=== PATIENT | female | born 1975 | race Caucasian/White ===

== ENCOUNTER 2017-01-14 13:02 | Emergency (ER) | payer BC ==
[~2017-01-14] VITALS: Ht 154.9 cm; Wt 58.6 kg
[~2017-01-14 13:02] MED LIST: CITROMA PO; DOCU-144 PO; GLYC1SUP92 PR
[2017-01-14 13:04] VITALS: Ht 154.9 cm; Wt 58.6 kg
[2017-01-14 16:14] LABS: ADD SCAN DIFF NO
[2017-01-14 16:19] LABS: BASOPHILS % 0.5 % (0.0-2.0); EOSINOPHILS # 0.1 10^3/ul (0.0-0.5); EOSINOPHILS % 2.2 % (0.0-7.0); HEMATOCRIT 39.4 % (37.0-47.0); LYMPHOCYTES # 1.4 10^3/ul (0.8-2.9); LYMPHOCYTES % 22.7 % (15.0-51.0); MEAN CORPUSCULAR HEMOGLOBIN 30.7 pg (29.0-33.0); MEAN CORPUSCULAR VOLUME 92.9 fl (82.0-101.0); MEAN PLATELET VOLUME 9.2 fl (7.4-10.4); MONOCYTE # 0.3 10^3/ul (0.3-0.9); MONOCYTES % 5.5 % (0.0-11.0); NEUTROPHIL # 4.2 10^3/ul (1.6-7.5); NEUTROPHILS % 68.9 % (39.0-77.0); PLATELET COUNT 384 10^3/UL (140-415); RED BLOOD COUNT 4.24 10^6/ul (4.20-5.40); RED CELL DISTRIBUTION WIDTH 12.5 % (11.5-14.5)
[2017-01-14 16:20] LABS: ADD UMIC YES; URINE BILIRUBIN (Dip) NEGATIVE (NEGATIVE); URINE BLOOD (Dip) 2+ (NEGATIVE); URINE COLOR LT. YELLOW (YELLOW); URINE GLUCOSE (Dip) NEGATIVE (NEGATIVE); URINE KETONES (Dip) NEGATIVE (NEGATIVE); URINE LEUKOCYTE ESTERASE (Dip) TRACE (NEGATIVE); URINE NITRITE (Dip) NEGATIVE (NEGATIVE); URINE TOTAL PROTEIN (Dip) NEGATIVE (NEGATIVE); URINE UROBILINOGEN (Dip) 0.2 E.U./dL (0.1-1.0)
--- NOTE | 2017-01-14 16:21 | RADRPT ---
PROCEDURE: CT abdomen and pelvis without contrast. CLINICAL INDICATION: Bowel and urinary retention TECHNIQUE: CT scan of the abdomen and pelvis without contrast was performed and is reconstructed a t 2.5 mm contiguous axial intervals from the dome of the diaphragm to the inferior pubic rami.. The patient was scanned without intravenous contrast. Sagittal and coronal reformatted images were obt ained from the axial source images. The calculated radiation dose measures 300 a mGy centimeters. Th e CTDI measures 6 mGy. COMPARISON: None. FINDINGS: The lung bases are clear of any infiltrate or nodule. No effusion is seen. The liver is of normal size, contour and attenuation with no mass or ductal dilatation. No gallston es are visualized. No splenic, adrenal or pancreatic abnormalities present. Kidneys are of normal size and contour. No hydronephrosis or masses seen. There is a 2 mm nonobst ructing stone in the midpole of the left kidney. A second 2 mm nonobstructing stone is seen in the upper pole of the right kidney. Ureters are of normal course and caliber with no stone. No bladder mass or stone is present. Uterus is been removed. No adnexal mass is seen. There is no aneurysm. No adenopathy is present. No bowel mass or obstruction is present. The appendix is normal. No phlegmon, ascites or pneumop eritoneum is visualized. The osseous structures are intact. IMPRESSION: No evidence of obstructive uropathy, diverticulitis or appendicitis. Tiny bilateral renal calculi. .Dada Holcomb MD, Date Time Electronically viewed and signed by .Dada Holcomb MD, MD on 01/14/2017 16:20 .A/
[2017-01-14 16:27] LABS: ALBUMIN 4.3 g/dl (3.3-4.9)
[2017-01-14 16:28] LABS: POTASSIUM 3.3 mmol/L (3.5-5.1)
[2017-01-14 16:30] LABS: ALBUMIN/GLOBULIN RATIO 1.19; BILIRUBIN,INDIRECT 0.7 mg/dl (0-1.1); BILIRUBIN,TOTAL 0.7 mg/dl (0.2-1.3); CREATININE 0.52 mg/dl (0.44-1.00); TOTAL PROTEIN 7.9 g/dl (6.1-8.1)
[2017-01-14 16:31] LABS: CALCIUM 9.2 mg/dl (8.4-10.2)
[2017-01-14 16:45] LABS: SQUAMOUS EPITHELIAL CELL,UR RARE; URINE RBCS 25-50 /HPF (0)
[2017-01-14 16:46] LABS: BACTERIA,URINE OCCASIONAL; MUCUS,URINE FEW
[2017-01-14] MEDS ORDERED: ALPR0.254 PO (17:01)
[2017-01-14 17:15] VITALS: BP 130/69; PULSE 86; RESP 16; TEMP 98.1
--- NOTE | 2017-01-14 17:26 | ERD ---
ER Documentation Chief Complaint Date/Time DATE: 01/14/17 TIME: 17:22 Chief Complaint pt had surg 12/30/16 and now has been having periods of diarrhea , unk cause HPI This is a 41-year-old female who presents to the ER with multiple complaints. Patient had a hysterectomy on December 30, 2016 and was discharged on January 02, 2017. Patient states that she has difficulty having bowel movements and that she sits in the bathroom for 5-6 hours to complete a bowel movement. Patient states that it is a little, patient states that whenever she feels like she is finished she feels as if she has to go again and has to sit down on the toilet once again. She states that she had same problem while urinating. Patient can spend up to 2 hours urinating. Patient denies any burning with urination. She denies any blood in her bowels or in her urine. Patient is complaining of left lower quadrant pain. Patient has had this problem for many months and started originally in September, hysterectomy was believed to alleviate this problem however it has not worked. Patient is being seen by Dr. Perico Livingston she has an appointment with him on Monday. ROS 12 point review of systems was done, all negative except per HPI. Medications Home Meds Active Scripts Alprazolam* (Alprazolam*) 0.25 Mg Tablet, 0.25 MG PO Q8, #15 TAB Prov:ADELFO CARLTON 01/14/17 Glycerin* (Glycerin (Adult)*) 1 Each Supp.rect, 1 EACH WI DAILY Y for CONSTIPATION, #10 SUPP.RECT Prov:MELONIE SALAZAR MD 11/17/16 Magnesium Citrate* (Citroma*) 300 Ml Soln, 300 ML PO DAILY Y for CONSTIPATION, # 3 BOTTLE Prov:MELONIE SALAZAR MD 11/17/16 Docusate Sodium* (Colace*) 100 Mg Capsule, 100 MG PO TID, #30 CAP Prov:CIRO JOHNSON 10/20/16 Allergies Allergies: Coded Allergies: No Known Allergy (Unverified , 01/14/17) PMhx/Soc History of Surgery: Yes (HYSTERECTOMY ON 12/30/16 ) Anesthesia Reaction: No Hx Neurological Disorder: No Hx Respiratory Disorders: No Hx Cardiac Disorders: No Hx Psychiatric Problems: No Hx Miscellaneous Medical Probl: Yes (ANEMIA, CYSTOCELE, PROLAPSED BLADDER) Hx Alcohol Use: No Hx Substance Use: No Hx Tobacco Use: No Smoking Status: Never smoker Physical Exam Vitals Vital Signs Date Time Temp Pulse Resp B/P Pulse Ox O2 Delivery O2 Flow Rate FiO2 01/14/17 17:15 98.1 86 16 130/69 99 Room Air 01/14/17 13:04 97.6 83 18 132/70 99 Physical Exam GENERAL: The patient is well developed and appropriate for usual state of health , in no apparent distress. HEENT: Atraumatic.. CHEST: Clear to auscultation bilaterally. There are no rales, wheezes or rhonchi. HEART: Regular rate and rhythm. No murmurs, clicks, rubs or gallops. ABDOMEN: Soft, nontender and nondistended. Good bowel sounds. No rebound or guarding. No gross peritonitis. No gross organomegaly or masses. No Garrido sign or McBurney point tenderness. NEURO: Alert and oriented. Result Diagram: 01/14/17 1605 01/14/17 1605 Results 24 hrs Laboratory Tests Test 01/14/17 16:05 Alanine Aminotransferase (ALT/SGPT) 27IU/L Albumin 4.3g/dl Albumin/Globulin Ratio 1.19 Alkaline Phosphatase 74IU/L Anion Gap 16 Aspartate Amino Transf (AST/SGOT) 23IU/L Basophils # 0.010^3/ul Basophils % 0.5% Blood Urea Nitrogen 10mg/dl Calcium Level 9.2mg/dl Carbon Dioxide Level 32mmol/L Chloride Level 99mmol/L Creatinine 0.52mg/dl Direct Bilirubin 0.00mg/dl Eosinophils # 0.110^3/ul Eosinophils % 2.2% Globulin 3.60g/dl Glucose Level 95mg/dl Hematocrit 39.4% Hemoglobin 13.0g/dl Indirect Bilirubin 0.7mg/dl Lipase 56U/L Lymphocytes # 1.410^3/ul Lymphocytes % 22.7% Mean Corpuscular Hemoglobin 30.7pg Mean Corpuscular Hemoglobin Concent 33.0g/dl Mean Corpuscular Volume 92.9fl Mean Platelet Volume 9.2fl Monocytes # 0.310^3/ul Monocytes % 5.5% Neutrophils # 4.210^3/ul Neutrophils % 68.9% Nucleated Red Blood Cells # 0.010^3/ul Nucleated Red Blood Cells % 0.0/100WBC Platelet Count 64036^3/UL Potassium Level 3.3mmol/L Red Blood Count 4.2410^6/ul Red Cell Distribution Width 12.5% Sodium Level 144mmol/L Total Bilirubin 0.7mg/dl Total Protein 7.9g/dl Urine Bacteria OCCASIONAL Urine Bilirubin NEGATIVE Urine Clarity CLEAR Urine Color LT. YELLOW Urine Glucose NEGATIVE% Urine Hemoglobin 2+ Urine Ketones NEGATIVE Urine Leukocyte Esterase TRACE Urine Microscopic RBC 25-50/HPF Urine Microscopic WBC 0-2/HPF Urine Mucus FEW Urine Nitrite NEGATIVE Urine Specific Joes 1.025 Urine Squamous Epithelial Cells RARE Urine Total Protein NEGATIVE Urine Urobilinogen 0.2 E.U./dL Urine pH 6.0 White Blood Count 6.010^3/ul Procedures/MDM This is a 41-year-old female presents to the ER with an acute on chronic problem. At this time do not believe the patient is having acute abdomen. Her physical examination is benign she is afebrile and well-appearing. I strongly encouraged that patient get a colonoscopy as she has had a recent change in her bowel habits. At this time do not believe that patient has any life- threatening emergencies. I gave patient some alprazolam for anxiety as she appears to be very anxious and asked if I could give her something for anxiety as the situation has made her very anxious. Patient is to follow-up with her primary care doctor within 1-2 days or return to ER sooner if symptoms worsen. Medical decision making was shared with the patient she understands and agrees with plan. Departure Diagnosis: Primary Impression: Multiple complaints Condition: Stable Patient Instructions: Colonoscopy Additional Instructions: Call your primary care doctor TOMORROW for an appointment during the next 1-2 days.See the doctor sooner or return here if your condition worsens before your appointment time. ADELFO CARLTON Jan 14, 2017 17:26
== END 2017-01-14 17:16 | disposition home or self-care (01) ==
LOC: FTE 13:02
DX: R19.7 Diarrhea, unspecified (principal); N39.9 Disorder of urinary system, unspecified; R10.32 Left lower quadrant pain; Z90.710 Acquired absence of both cervix and uterus
CPT/HCPCS: 36415; 74176; 80053; 81001; 81003; 83690; 85025